=== PATIENT | female | born 1995 | race Caucasian/White ===

== ENCOUNTER 2018-07-17 19:16 | Inpatient (IN) | payer OTHER ==
[2018-07-17] MEDS ORDERED: TDAP ADULT 0.5 ML INJ (BOOSTRIX) IM ONE (19:21)
[2018-07-17] MEDS ORDERED: CEFAZOLIN 1 GM/DEXTROSE/50 ML BAG IV ONE (19:21)
[2018-07-17 19:32] LABS: PLATELET COUNT 317 10^3/uL (150-400)
[2018-07-17] MEDS ORDERED: NS 1,000 ML IV ONE (19:44)
[2018-07-17] MEDS ORDERED: ONDANSETRON 4 MG/2 ML VIAL IVP PRN ×2 (20:10→23:15)
[2018-07-17] MEDS ORDERED: ACETAMINOPHEN 325 MG TAB PO PRN (20:10)
[2018-07-17] MEDS ORDERED: HYDROCODONE/APAP 5/325 TAB PO PRN (20:10)
[2018-07-17] MEDS ORDERED: DIAZEPAM 5 MG TAB PO PRN (20:10)
[2018-07-17] MEDS ORDERED: ONDANSETRON 4 MG/2 ML VIAL IVP ONE (20:11)
[2018-07-17] MEDS ORDERED: HYDROmorphONE/DILAUDID 1 MG/ML INJ IVP ONE (20:11)
--- NOTE | 2018-07-17 20:19 | EDPHY ---
H & P Time Seen by Provider: 07/17/18 19:20 HPI/ROS: Chief complaint. Full trauma activation HPI. Patient is 23-year-old female here is full trauma activation per EM S. Patient was at the [employer] and was approximately 15-20 feet above the ground. She fell awkwardly onto a mat. Landing somewhat on her chest apparently. She sustained injury to her left elbow and right ankle. Has been unable to ambulate. Did not strike her head or lose consciousness. No neck or back pain. No chest discomfort or trouble breathing. No abdominal pain. No previous injuries to the elbow or ankle. ROS Constitutional. no fever/chills, no weakness Eyes. no problems with vision ENT. no sore throat, no nasal drainage Cardiovascular. no chest pain Respiratory. no shortness of breath, no cough Abdominal. no abdominal pain, no nausea/vomiting, no diarrhea . no problems urinating MS. Left elbow and right ankle pain Skin. no rash Lymph. no swollen glands Neuro. no headache, no dizziness, no difficulty walking or with speech Past Medical/Surgical History: Healthy Social History: Single, nonsmoker, no alcohol Smoking Status: Never smoked Physical Exam: General Appearance: Alert well-developed female moderate to severe distress. Vital signs stable Eyes: Pupils equal and round no pallor or injection. ENT, Mouth: Mucous membranes are moist. Respiratory: There are no retractions, lungs are clear to auscultation. Cardiovascular: Regular rate and rhythm. Gastrointestinal: Abdomen is soft and nontender, no masses, bowel sounds normal. Neurological: Awake and alert, sensory and motor exams grossly normal. Skin: Warm and dry, no rashes. Musculoskeletal: Neck is nontender. We log-rolled the patient and she has no T , L, S spine pain Extremities obvious dislocation of the left elbow with thready radial pulse. Open dislocation of the right ankle with foot severely angulated. Poor pulses to feet. The foot is still in the climbing shoe. I can see the bottom of the tibia and fibula articular surface and the top of the talar dome on the foot that is still in the shoe Psychiatric: Patient is oriented X 3, there is no agitation. Constitutional: Initial Vital Signs Temperature (C) 37.0 C 07/17/18 19:17 Heart Rate 113 H 07/17/18 19:17 Respiratory Rate 28 H 07/17/18 19:17 Blood Pressure 136/96 H 07/17/18 19:17 O2 Sat (%) 100 07/17/18 19:17 O2 Delivery Mode Room Air Allergies/Adverse Reactions: No Allergies [NKDA] Allergy (Verified 07/17/18 20:10) Home Medications: Medication Instructions Recorded Norethindrone-E.estradiol-Iron 1 each PO DAILY 07/17/18 [Blisovi Fe 1-20 Tablet] Medical Decision Making Procedures: IV normal saline. Dilaudid for pain. Zofran for nausea. Ancef IV. Tetanus shot Procedure: Conscious sedation. Indication: Dislocation reduction I want to perform procedural sedation to reduce the ankle and left elbow The patient is an appropriate candidate to tolerate procedural sedation. The patient's vital signs and mental status are appropriate. The risks, benefits and alternatives of the sedation were discussed with the patient. The patient is ASA classification 1-5. The patient's Mallampati airway score was 1 and the patient did meet the 3-3-2 airway measurements. A time out was completed. The patient was sedated with propofol 120 mg IV. The patient was monitored with continuous pulse oximetry, air sampling and monitoring and end tidal CO2. There were no complications and no significant hypoxemia. I performed I performed the reduction of the elbow and Dr. Jenkins performed reduction of the ankle The total time I spent at the bedside during the procedural sedation was minutes. The patient was examined after the procedural sedation and has returned to their pre -sedation baseline with normal vital signs and a normal examination. ED Course/Re-evaluation: Following reduction of the elbow the pulses in the radial artery were diminished. I used vascular ultrasound and started up high in the upper arm and trace the artery all the way down. There is no evidence of extravasation or impairment. Following this radial pulses are good. Following reduction of the ankle though the patient has good pulses in the feet and the foot becomes pink Patient is placed in a OC L splint on the right ankle. Post splint application inspected by me shows good anatomic position and distal motor vascular sensitivity to be intact. Ex further x-rays show nondisplaced fracture of the left distal radius. She is put in a Velcro splint as well as put in a sling and she will be going to the operating room for her ankle Fast exam shows no evidence of intra-abdominal bleeding Dr. Jenkins is present on arrival of the patient I consulted and discussed case with Dr. Jason for orthopedic who will see the patient and take her to the OR for stabilization washout. Differential Diagnosis: Obvious dislocation of elbow and disarticulation of the right ankle. I considered other trauma including head spine chest and abdominal trauma Critical Care Time: Critical care time exclusive procedures 45 min - Data Points Laboratory Results: Laboratory Results 07/17/18 19:20 07/17/18 19:20 07/17/18 07/17/18 07/17/18 19:26 19:20 19:20 WBC RBC Hgb POC Hgb 13.9 gm/dL gm/dL (12.6-16.3) Hct POC Hct 41 % % (38-47) MCV MCH MCHC RDW Plt Count MPV Neut % (Auto) Lymph % (Auto) [place] % (Auto) Eos % (Auto) Baso % (Auto) Nucleat RBC Rel Count Absolute Neuts (auto) Absolute Lymphs (auto) Absolute Monos (auto) Absolute Eos (auto) Absolute Basos (auto) Absolute Nucleated RBC Immature Gran % Immature Gran # POC Sodium 140 mEq/L mEq/L (135-145) Sodium POC Potassium 2.9 mEq/L L mEq/L (3.3-5.0) Potassium POC Chloride 104 mEq/L mEq/L (97-110) Chloride Carbon Dioxide Anion Gap POC BUN 14 mg/dL mg/dL (7-23) BUN Creatinine POC Creatinine 0.7 mg/dL mg/dL (0.6-1.0) Estimated GFR Glucose POC Glucose 101 mg/dL H mg/dL (70-100) Calcium Beta HCG, Qual Pending Patient ABO/Rh O POSITIVE Antibody Screen NEGATIVE 07/17/18 07/17/18 19:20 19:20 WBC 8.65 10^3/uL 10^3/uL (3.80-9.50) RBC 4.27 10^6/uL 10^6/uL (4.18-5.33) Hgb 13.6 g/dL g/dL (12.6-16.3) POC Hgb Hct 39.8 % % (38.0-47.0) POC Hct MCV 93.2 fL fL (81.5-99.8) MCH 31.9 pg pg (27.9-34.1) MCHC 34.2 g/dL g/dL (32.4-36.7) RDW 14.1 % % (11.5-15.2) Plt Count 317 10^3/uL 10^3/uL (150-400) MPV 10.0 fL fL (8.7-11.7) Neut % (Auto) 53.0 % % (39.3-74.2) Lymph % (Auto) 36.0 % % (15.0-45.0) [place] % (Auto) 8.3 % % (4.5-13.0) Eos % (Auto) 2.0 % % (0.6-7.6) Baso % (Auto) 0.5 % % (0.3-1.7) Nucleat RBC Rel Count 0.0 % % (0.0-0.2) Absolute Neuts (auto) 4.59 10^3/uL 10^3/uL (1.70-6.50) Absolute Lymphs (auto) 3.11 10^3/uL H 10^3/uL (1.00-3.00) Absolute Monos (auto) 0.72 10^3/uL 10^3/uL (0.30-0.80) Absolute Eos (auto) 0.17 10^3/uL 10^3/uL (0.03-0.40) Absolute Basos (auto) 0.04 10^3/uL 10^3/uL (0.02-0.10) Absolute Nucleated RBC 0.00 10^3/uL 10^3/uL (0-0.01) Immature Gran % 0.2 % % (0.0-1.1) Immature Gran # 0.02 10^3/uL 10^3/uL (0.00-0.10) POC Sodium Sodium 138 mEq/L mEq/L (135-145) POC Potassium Potassium 3.2 mEq/L L mEq/L (3.3-5.0) POC Chloride Chloride 104 mEq/L mEq/L (97-110) Carbon Dioxide 20 mEq/l L mEq/l (22-31) Anion Gap 14 mEq/L mEq/L (8-16) POC BUN BUN 16 mg/dL mg/dL (7-23) Creatinine 0.7 mg/dL mg/dL (0.6-1.0) POC Creatinine Estimated GFR > 60 Glucose 98 mg/dL mg/dL (70-100) POC Glucose Calcium 9.8 mg/dL mg/dL (8.5-10.4) Beta HCG, Qual Patient ABO/Rh Antibody Screen Medications Given: Cefazolin Sodium/Dextrose (Ancef 1 Gm (Premix)) 50 mls @ 200 mls/hr IV EDNOW ONE PRN Reason: Protocol Stop: 07/17/18 20:25 Last Admin: 07/17/18 19:23 Dose: 50 mls Discontinued Medications Hydromorphone HCl (Dilaudid) 1 mg IVP EDNOW ONE Stop: 07/17/18 20:12 Last Admin: 07/17/18 19:18 Dose: 1 mg Sodium Chloride (Ns) 1,000 mls @ 0 mls/hr IV ONCE ONE; Wide Open PRN Reason: Protocol Stop: 07/17/18 19:45 Last Admin: 07/17/18 19:17 Dose: 1,000 mls Ondansetron HCl (Zofran) 4 mg IVP EDNOW ONE Stop: 07/17/18 20:12 Last Admin: 07/17/18 19:20 Dose: 4 mg Point of Care Test Results: Chemistry 07/17/18 19:26 POC Sodium 140 mEq/L mEq/L (135-145) POC Potassium 2.9 mEq/L L mEq/L (3.3-5.0) POC Chloride 104 mEq/L mEq/L (97-110) POC BUN 14 mg/dL mg/dL (7-23) POC Creatinine 0.7 mg/dL mg/dL (0.6-1.0) POC Glucose 101 mg/dL H mg/dL (70-100) ISTAT H&H 07/17/18 19:26 POC Hgb 13.9 gm/dL gm/dL (12.6-16.3) POC Hct 41 % % (38-47) Departure - Departure Disposition: [facility] Inpatient Acute Clinical Impression: Multiple traumatic injuries Condition: Fair
[2018-07-17 20:23] LABS: INR 0.93 (0.83-1.16); PROTIME(PATIENT) 12.7 SEC (12.0-15.0)
[2018-07-17] MEDS ORDERED: PROPOFOL 200 MG/20 ML VIAL IVP ONE (20:29)
[2018-07-17] MEDS ORDERED: LR 1,000 ML IV SCH (20:30)
--- NOTE | 2018-07-17 20:33 | GHP ---
[f rep st] PREOP HISTORY AND PHYSICAL DATE OF ADMISSION: 07/17/2018 REASON FOR EVALUATION: Full trauma activation. 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 She lost her balance at the time of the top of her route and per her boyfriend's recollection, landed on her chest. She was complaining of severe left arm and right ankle pain. She was noted to have a severe deformities of both extremities and brought to [facility] for further assessment. On ED arrival, the patient was with the above complaints only. She was without complaints of headache, neck pain, chest pain, shortness of breath, or abdominal complaints. She denied loss of consciousness. PAST MEDICAL HISTORY: None. PAST SURGICAL HISTORY: Tonsillectomy. MEDICATIONS: Oral contraceptives. ALLERGIES: No known drug allergies. SOCIAL HISTORY: No alcohol or tobacco. She is a [employer] student. PHYSICAL EXAM: VITAL SIGNS: Blood pressure 136/96, pulse 113, respirations 28 , patient is 100% saturation room air. PRIMARY SURVEY: ABC intact. SECONDARY SURVEY: HEENT: Scalp atraumatic. Pupils are equally round and reactive to light and accommodation. Face is nontender. Cervical spine nontender. Trachea midline without crepitus. HEART: Regular without murmurs. LUNGS: Clear bilaterally. ABDOMEN: Soft, nontender, nondistended. No abdominal wall abrasions. CHEST WALL: Without step-offs or deformities. PELVIS: Nontender. EXTREMITIES: Right upper extremity unremarkable. 2+ radial pulse. Left upper extremity with obvious elbow dislocation. Radial pulses initially not palpable. Left lower extremity unremarkable. Right lower extremity with a complete open fracture dislocation with talar joint avulsion. BACK: Thoracic and lumbar spines nontender. PROCEDURES: FAST, 4 views, unremarkable with normal cardiac, bilateral upper quadrant, as well as pelvic windows. Propofol was administered and the left elbow was reduced by the emergency room physician recreational therapist, as was the right foot being relocated. Dorsalis pedis and posterior tibial pulses were immediately present upon completion of the ankle reduction. Left upper extremity ultrasound was completed showing an intact brachial artery from the level of the axilla down to the radial and ulnar arteries bilaterally. Palpable pulses were present once spasm released. Sensation and motor function grossly intact upon repeat assessment. IMPRESSION: Bouldering fall. Left elbow fracture dislocation and open dislocation/disarticulation of the right talar joint. Both extremities appear neurologically intact. PLAN: 1. Both upper and lower extremities have been adequately reduced. 2. Orthopedic surgery has been consulted for right ankle washout and stabilization. 3. Antibiotics and tetanus have been administered. 4. Tertiary survey to be completed once the patient stabilized from her immediate orthopedic injuries. 5. No other acute identifiable traumatic injuries noted at present time. Care plan findings were discussed with the patient's boyfriend at bedside and mother via phone. The patient's father has been contacted as well, who is en route. 6. C-spine has been clinically cleared. /[id number]/MODL MTDD
--- NOTE | 2018-07-17 21:04 | GHP ---
[f rep st] PREOP HISTORY AND PHYSICAL DATE OF ADMISSION: 07/17/2018 CHIEF COMPLAINT: 1. Left elbow pain. 2. Right ankle pain. DIAGNOSES: 1. Dislocation, right ankle with brief vascular compromise. 2. Simple elbow dislocation. 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 Bouldering up a spot. Fell about 15 to 20 feet. Landed wr dora onto her right ankle and left elbow. She was brought by EMS. Her foot and ankle were deformed. Elbow was deformed. She was triaged by the emergency room and had a successful elbow reduction and right ankle reduction. Had general surgery trauma evaluation and found to have isolated orthopedic i njuries with no vascular compromise. The ankle perked up with good palpable pulses, as well as the l eft upper extremity. Please see details of ER H and P, and General surgery H and P. PERTINENT ORTHOPEDIC EXAMINATION: A well-appearing female. She has had some pain medications. She is talkative and appropriate. Her dad and her boyfriend are at the bedside. She is in a well-placed sling on the left side. The left upper extremity and the right ankle, has pink toes, mobile toes wi th slightly decreased sensation in her superficial peroneal and deep peroneal. She has an intact EHL , FHL. Knee is not swollen. Abdomen is soft. Pelvis is nonpainful. The right upper extremity has no evidence of pain or trauma. Imaging reviewed. IMPRESSION/RECOMMENDATION: Elbow dislocation, reduced in the ER. Likely recommend early range of mo tion. Consider platform walker. With regard to the right ankle open dislocation, there were reports that it was a lateral wound. Plan for open washout, lateral ankle ligament reconstruction, wound cl osure. Possible, but unlikely ex-fix if the ankle is unstable. /[id number]/MODL
[2018-07-17] MEDS ORDERED: BACITRACIN 50,000 UNITS/10 ML SYR IRR ONE (21:44)
[2018-07-17] MEDS ORDERED: BUPIVACAINE 0.5% 30 ML SDV ONE (21:44)
[2018-07-17] MEDS ORDERED: POLYMYXIN B SULFATE 500,000 UNIT/10 ML SYR IRR ONE (21:44)
[2018-07-17] MEDS ORDERED: fentaNYL 100 MCG/2 ML INJ ONE ×3 (21:45→23:27)
[2018-07-17] MEDS ORDERED: PROPOFOL 200 MG/20 ML VIAL ONE (21:45)
[2018-07-17] MEDS ORDERED: oxyCODONE IR 5 MG TAB PO PRN (21:53)
[2018-07-17] MEDS ORDERED: D5W 1/2 NS W/ 20 KCl/L 1,000 ML IV SCH (22:00)
--- NOTE | 2018-07-17 22:03 | PDANEPAE ---
ANE History of Present Illness r ankle dislocation ANE Past Medical History - Pulmonary History Hx Oxygen in Use at Home: No - Endocrine History Hx Diabetes: No ANE Review of Systems Review of Systems: ANE Patient History - Allergies Allergies/Adverse Reactions: No Allergies [NKDA] Allergy (Verified 07/17/18 20:10) - Home Medications Home Medications: Norethindrone-E.estradiol-Iron [Blisovi Fe 1-20 Tablet] 1 each PO DAILY [Last Taken Unknown] - Smoking Hx Smoking Status: Never smoked ANE Labs/Vital Signs - Labs Result Diagrams: 07/17/18 19:20 07/17/18 19:20 - Vital Signs Blood Pressure: 136/96 Heart Rate: 113 Respiratory Rate: 28 O2 Sat (%): 100 Height: 160.02 cm Weight: 47.627 kg ANE Physical Exam - Airway Neck exam: FROM Mallampati Score: Class 1 Mouth exam: normal dental/mouth exam - Pulmonary Pulmonary: no respiratory distress - Cardiovascular Cardiovascular: regular rate and rhythym - ASA Status ASA Status: E ANE Anesthesia Plan Anesthesia Plan: general endotracheal anesthesia
[2018-07-17] MEDS ORDERED: BUPIVACAINE 0.25% 30 ML SDV ONE (22:34)
[2018-07-17] MEDS ORDERED: ROPIVACAINE HCL 20 MG/10 ML INJ EP ONE ×2 (22:43→22:45)
--- NOTE | 2018-07-17 22:53 | GOP ---
[f rep st] OPERATIVE REPORT DATE OF OPERATION: 07/17/2018 SURGEON: Darryl Koch MD ANESTHESIA: IV sedation administered by the emergency room staff. PREOPERATIVE DIAGNOSIS: 1. Right open ankle dislocation. 2. Left elbow dislocation. POSTOPERATIVE DIAGNOSIS: 1. Right open ankle dislocation. 2. Left elbow dislocation. PROCEDURE PERFORMED: 1. Irrigation, right lateral ankle, including skin, subcutaneous tissue, and bone. 2. Closed reduction, right ankle dislocation. 3. Closed reduction, left elbow dislocation. FINDINGS: INDICATIONS: The patient is a 23-year-old who presented as a trauma code to the emergency room after a fall while climbing. She had gross deformities of her right ankle and left elbow. Clinical and r adiographic evaluation showed dislocations (without fractures) of both of these. Based on the severe angulation at the joints and concern over vascular compromise, it was felt that emergent reductions be pursued rather than waiting for definitive operative management. DESCRIPTION OF PROCEDURE: After appropriate levels of sedation had been administered, the right ankl e was irrigated with manual lavage utilizing 2 L of normal saline irrigation. No gross debris in the wound. A closed reduction maneuver with distraction and eversion was performed, keeping the skin fr om buttonholing underneath the reduced fibula. The wound was covered with Betadine-soaked 4 x 4 and wrapped in Kerlix. A posterior below-knee splint was applied. Attention was then directed toward th e left elbow. With distraction and manipulation, the elbow was easily reduced. At this point, vascu lar evaluation was performed by the emergency room and trauma surgeon. Definitive operative manageme nt of the ankle by the on-call orthopedic surgeon, Dr. Quezada, would be undertaken. COMPLICATIONS: None. /[id number]/MODL
[2018-07-17] MEDS ORDERED: ceFAZolin 1 GM VIAL ONE (23:02)
[2018-07-17] MEDS ORDERED: DEXAMETHASONE 4 MG/ML VIAL ONE (23:02)
[2018-07-17] MEDS ORDERED: ROCURONIUM 50 MG/5 ML VIAL ONE (23:02)
[2018-07-17] MEDS ORDERED: ONDANSETRON 4 MG/2 ML VIAL ONE (23:02)
[2018-07-17] MEDS ORDERED: SUGAMMADEX SODIUM 200 MG/2 ML VIAL IVP ONE (23:08)
[2018-07-17] MEDS ORDERED: PROMETHAZINE HCL 25 MG/ML INJ IVP PRN (23:15)
[2018-07-17] MEDS ORDERED: NALOXONE HCL 0.4 MG/ML INJ IVP PRN (23:15)
[2018-07-17] MEDS ORDERED: MEPERIDINE 25 MG/0.5 ML AMP IVP PRN (23:15)
[2018-07-17] MEDS ORDERED: HYDROmorphONE/DILAUDID 1 MG/ML INJ IVP PRN (23:15)
--- NOTE | 2018-07-17 23:16 | POSTANESTH ---
Post Anesthetic Evaluation Cardiovascular Status: Normal, Stable Respiratory Status: Normal, Stable Level of Consciousness/Mental Status: Can Participate in Eval Pain Control: Adequate, Prn Tx Ordered Nausea/Vomiting Control: Adequate, Prn Tx Ordered Complications Possibly Related to Anesthesia: None Noted
[2018-07-17] MEDS: fentaNYL 100 MCG/2 ML INJ IVP PRN ×2 (23:29→23:34)
[2018-07-17] MEDS ORDERED: oxyCODONE IR 5 MG TAB ONE (23:42)
--- NOTE | 2018-07-17 23:48 | GOP ---
[f rep st] OPERATIVE REPORT DATE OF OPERATION: 07/17/2018 SURGEON: Rogerio Jason MD PREOPERATIVE DIAGNOSIS: Right open ankle dislocation. POSTOPERATIVE DIAGNOSIS: Right open ankle dislocation. PROCEDURE PERFORMED: 1. Irrigation, debridement of open ankle dislocation. 2. Repair of lateral ligament structures and stabilization. FINDINGS: ESTIMATED BLOOD LOSS: Minimal. INDICATIONS: 23-year-old female who fell bouldering. She sustained an open ankle dislocation along with a left elbow dislocation. The emergency room reduced both of these. She presents to me for ope rative stabilization, irrigation, debridement of open ankle injury. Patient identified in the preoperative holding area in the emergency room. Family was at the bedside . The ankle was well reduced already as well as the elbow. DESCRIPTION OF PROCEDURE: Patient was brought into the operating room. General anesthesia. No tour niquet was used. No Esmarch was used. The right lower extremity was prepped and draped in usual velma rile fashion. Surgical time-out was performed. She had a 6 cm transverse incision about 2 cm from t he distal fibular tip. She was unstable to inversion and was easily able to dislocate. We copiously washed out the right lower extremity. We took a slightly vertical incision from the anterior aspect to open up a flap of tissue to access the lateral ligament capsule, ATFL, and CFL. The peroneals we re visible. They were not dislocating. We washed out with 6000 of normal saline. The last 3000 wit h polymyxin and bacitracin. We closed the capsule with [id number] 0 PDS x5 stitches. Irrigated again and closed the subcutaneous tissue with 3-0 Monocryl and skin with 3-0 nylon, all monofilament sutures. We tested the ankle. It had neutral dorsiflexion and full knee extension and about 5 degr ees of inversion with no evidence of dislocation or instability. We did 27 cc of 0.2% ropivacaine in a field block around the ankle. We placed Xeroform, 4x4s, ABD, Webril, and a well-padded AO splint in 90 degrees of dorsiflexion or neutral dorsiflexion. COMPLICATIONS: None. TOURNIQUET: 0. DISPOSITION: Extubated awake to the PACU in stable condition. /[id number]/MODL
[2018-07-18] MEDS: HYDROmorphONE/DILAUDID 1 MG/ML INJ IVP PRN ×5 (00:14→12:57)
[2018-07-18] MEDS ORDERED: KETOROLAC 15 MG/1 ML SDV IVP PRN (02:38)
[2018-07-18] MEDS ORDERED: KETOROLAC 30 MG/1 ML SDV IVP ONE (02:45)
[2018-07-18] MEDS: oxyCODONE IR 5 MG TAB PO PRN ×2 (05:20→11:32)
--- NOTE | 2018-07-18 07:12 | PDMN ---
Medical Necessity [place] [facility] [place], closed or open reduction - INPT for Open dislocation-: I/D R lateral ankle, closed reduction R ankle, Closed reduction L elbow dislocation,
[2018-07-18] MEDS: ENOXAPARIN 40 MG/0.4 ML SYR SC SCH (08:49)
--- NOTE | 2018-07-18 12:47 | SOAPPROG ---
SOAP Progress Note Assessment/Plan: Assessment/Plan: 23 yo female s/p 15 foot fall, pod#1 s/p right ankle relocation and wash out x2 with lateral ankle ligament repair and capsular closure by dr. palafox and dr. manrique respectively. pain control: tylenol 1000mg q8h prn pain, toradol IV prn pain oxycodone 5-10mg po q4-6h prn pain cyclobenzaprine 10mg 1 tab po q8h scheduled spasm/pain RLE: non-weight bearing right lower extremity except may do pivet transfers once trained by PT, maintain splint LUE: range of motion of elbow as tolerated by pain, full shoulder/wrist/digit as tolerated by pain, non-weight bearing, may use platform walker -plan for discharge once tolerating PO pain meds -f/u with orthopedics 7-10 days after surgery with dr. manrique or staff in clinic Subjective: paty reports that she is doing okay, her pain was better controlled before she got up to go to the bathroom, it is now 8/, even when it was "better controlled," it was still very painful, she reports spasming causing lots of pain as well in the leg and arm. denies any chest pain, sob, difficulty breathing, denies n/v/d/c. reports the numbness in her right foot is improving, she can also wiggle her toes more but it is painful. Objective: healthy appearing young female, in pain RLE: dressings c/d/i, no drainage or visible blood, no ankle rom assessed, grossly nvid with brisk cap refill, digital rom limited by pain Vital Signs Temp Pulse Resp BP Pulse Ox 36.7 C 80 15 121/74 H 100 07/18/18 11:20 07/18/18 11:20 07/18/18 11:20 07/18/18 11:20 07/18/18 11:20 07/17/18 07/18/18 07/19/18 05:59 05:59 05:59 Intake Total 3300 500 Output Total 920 Balance 2380 500 PT 12.7 SEC (12.0-15.0) 07/17/18 20:12 INR 0.93 (0.83-1.16) 07/17/18 20:12 ICD10 Worksheet Patient Problems: Problems Problem Status Onset Multiple traumatic injuries Acute
[2018-07-18] MEDS ORDERED: CYCLOBENZAPRINE 10 MG TAB PO PRN (12:51)
[2018-07-18] MEDS ORDERED: ACETAMINOPHEN 500 MG TAB PO PRN (12:56)
[2018-07-18] MEDS ORDERED: DIAZEPAM 5 MG TAB PO PRN ×2 (13:11→13:30)
[2018-07-18] MEDS ORDERED: IBUPROFEN 800 MG TAB PO SCH (14:00)
--- NOTE | 2018-07-18 14:34 | ASMTCMCOM ---
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 Pt has ortho injuries on R ankle, L elbow. OT/PT/[employer]IST evals pending. Chart indicates pt father and boyfriend have been at hospital. Inpatient rehab consult order in. CM to follow D/c plan of care: TBD Date Signed: 07/18/2018 02:33 PM Electronically Signed By:BIANCA Krishnan
[2018-07-18] MEDS: CYCLOBENZAPRINE 10 MG TAB PO PRN (16:03)
[2018-07-18] MEDS: ACETAMINOPHEN 500 MG TAB PO SCH ×2 (16:03→21:34)
[2018-07-18] MEDS: NORETHINDRONE E ESTRADIOL IRON PO SCH (16:09)
--- NOTE | 2018-07-18 16:35 | TRAUMAPNT ---
Trauma Tertiary Progress Note New Findings: no new findings Assessment/Plan: 07/18/2018 PAD#1 issues: left elbow dislocation right ankle disruption Assessment: Pain control inadequate. No stool yet Plan: medications adjusted. Will add bowel protocol Subjective: My ankle hurts! Objective: Vital Signs Temp Pulse Resp BP Pulse Ox 36.9 C 96 15 101/69 97 07/18/18 15:48 07/18/18 15:48 07/18/18 15:48 07/18/18 15:48 07/18/18 15:48 07/17/18 07/18/18 07/19/18 05:59 05:59 05:59 Intake Total 3300 500 Output Total 920 Balance 2380 500 PT 12.7 SEC (12.0-15.0) 07/17/18 20:12 INR 0.93 (0.83-1.16) 07/17/18 20:12 Physical Exam - Physical Exam General Appearance: WD/WN, alert, mild distress Neck: non-tender, full range of motion Respiratory: chest non-tender, lungs clear, normal breath sounds Cardiac/Chest: regular rate, rhythm Abdomen: normal bowel sounds, non-tender, soft Pelvic Exam: deferred Rectal: deferred Back: Normal inspection Skin: normal color, warm/dry Extremities: other (right ankle splinted) Neuro/Psych: no motor/sensory deficits, alert, normal mood/affect, oriented x 3 Time Spent w/Patient (minutes): 25
[2018-07-18] MEDS ORDERED: MAGNESIUM HYDROXIDE 30 ML UDCUP PO PRN (17:13)
[2018-07-18] MEDS ORDERED: POLYETHYLENE GLYCOL 3350 17 GM PKT PO PRN (17:13)
[2018-07-18] MEDS ORDERED: LACTULOSE 20 GM/30 ML UDCUP PO PRN (17:13)
[2018-07-18] MEDS ORDERED: BISACODYL 10 MG SUPP PR PRN (17:13)
[2018-07-18] MEDS: KETOROLAC 30 MG/1 ML SDV IVP SCH ×2 (18:13→23:33)
[2018-07-18] MEDS: POTASSIUM CL 20 MEQ TAB PO SCH (21:33)
[2018-07-18] MEDS: SENNOSIDES/DOCUSATE SODIUM TAB PO SCH (21:34)
[2018-07-19] MEDS: CYCLOBENZAPRINE 10 MG TAB PO PRN ×2 (02:23→17:34)
[2018-07-19] MEDS: oxyCODONE IR 5 MG TAB PO PRN ×2 (02:23→05:25)
[2018-07-19] MEDS: HYDROmorphONE/DILAUDID 1 MG/ML INJ IVP PRN (03:25)
[2018-07-19] MEDS: KETOROLAC 30 MG/1 ML SDV IVP SCH ×2 (05:26→12:33)
[2018-07-19] MEDS: ACETAMINOPHEN 500 MG TAB PO SCH ×2 (06:02→16:05)
[2018-07-19] MEDS: POTASSIUM CL 20 MEQ TAB PO SCH ×2 (06:03→16:06)
--- NOTE | 2018-07-19 09:52 | TRAUMAPN ---
Trauma Progress Note Assessment/Plan: 07/18/2018 PAD#1 issues: left elbow dislocation right ankle disruption Assessment: Pain control inadequate. No stool yet Plan: medications adjusted. Will add bowel protocol PAD#2 Assessment: Pain control better with Toradol but still has occasional breakthrough. Plan: almost set for discharge. Subjective: Decreased sensation on dorsum of right 4th toe No stool yet Objective: Vital Signs Temp Pulse Resp BP Pulse Ox 36.7 C 83 14 97/58 L 96 07/19/18 07:30 07/19/18 07:30 07/19/18 07:30 07/19/18 07:30 07/19/18 07:30 Laboratory Results 07/19/18 04:45 07/18/18 07/19/18 07/20/18 05:59 05:59 05:59 Intake Total 3300 1484 Output Total 920 1400 900 Balance 2380 84 -900 PT 12.7 SEC (12.0-15.0) 07/17/18 20:12 INR 0.93 (0.83-1.16) 07/17/18 20:12 Physical Exam - Physical Exam General Appearance: WD/WN, alert, no apparent distress Neck: non-tender, full range of motion Respiratory: chest non-tender, lungs clear, normal breath sounds Cardiac/Chest: regular rate, rhythm Abdomen: non-tender, soft Pelvic Exam: deferred Rectal: deferred Back: Normal inspection Skin: normal color, warm/dry Extremities: other (decreased sensation on dorsum of right 4th toe) Neuro/Psych: no motor/sensory deficits, alert, normal mood/affect Time Spent w/Patient (minutes): 15
[2018-07-19] MEDS: NORETHINDRONE E ESTRADIOL IRON PO SCH (10:20)
[2018-07-19] MEDS: SENNOSIDES/DOCUSATE SODIUM TAB PO SCH (10:53)
[2018-07-19] MEDS: ENOXAPARIN 40 MG/0.4 ML SYR SC SCH (10:53)
--- NOTE | 2018-07-19 11:20 | SOAPPROG ---
SOAP Progress Note Assessment/Plan: Assessment/Plan: 23 yo female s/p 15 foot fall, pod#1 s/p right ankle relocation and wash out x2 with lateral ankle ligament repair and capsular closure by dr. palafox and dr. manrique respectively. proph: per primary pain control: tylenol 1000mg q8h prn pain, toradol IV prn pain oxycodone 5-10mg po q4-6h prn pain cyclobenzaprine 10mg 1 tab po q8h scheduled spasm/pain PT/OT RLE: non-weight bearing right lower extremity except may do pivet transfers once trained by PT, maintain splint LUE: range of motion of elbow as tolerated by pain, full shoulder/wrist/digit as tolerated by pain, non-weight bearing, may use platform walker -plan for discharge once tolerating PO pain meds -f/u with orthopedics 7-10 days after surgery with dr. manrique or staff in clinic 07/19/18 11:18 Subjective: paty reports that last night she didn't have any issues, pain was better controlled, but she is still using the IV toradol and still had "multiple rough episodes," but denies any falls or injuries, denies any fevers or chills, denies n/v/d/c. reports her sensation in her toes and right foot is still getting better, it feels less, but improved from yesterday. Objective: RLE: dressings c/d/i, no ankle rom assessed, grossly nvid increased sensation of "pressure" in right 4th toe, all 5 digits w/ brisk cap refill, digital rom limited by pain Vital Signs Temp Pulse Resp BP Pulse Ox 36.7 C 83 14 97/58 L 96 07/19/18 07:30 07/19/18 07:30 07/19/18 07:30 07/19/18 07:30 07/19/18 07:30 Laboratory Results 07/19/18 04:45 07/18/18 07/19/18 07/20/18 05:59 05:59 05:59 Intake Total 3300 1484 Output Total 920 1400 900 Balance 2380 84 -900 PT 12.7 SEC (12.0-15.0) 07/17/18 20:12 INR 0.93 (0.83-1.16) 07/17/18 20:12 - Time Spent With Patient Time Spent With Patient: 45 mins - Pending Discharge Pending Discharge Within 48 Hours: Yes Pending Discharge Date: 07/21/18 Pending Discharge Time: 11:00 ICD10 Worksheet Patient Problems: Problems Problem Status Onset Multiple traumatic injuries Acute
[2018-07-19 11:39] VITALS: BP 118/81
[2018-07-19] MEDS ORDERED: HYDROmorphONE/DILAUDID 2 MG TAB PO PRN (13:57)
--- NOTE | 2018-07-19 14:58 | SOAPPROG ---
SOAP Progress Note Assessment/Plan: Assessment: POD 2. R ankle washout and lateral lig repair. Vascular intact. Plan: 07/19/18 14:56 forearm weightbearing OK ELbow ROM OK R ankle toe touch weight bearing fu in my clinic in 7 days. Dispo. she has 2 flights of stairs to negotiate. Subjective: POD 2. Mom at bedside. Alert cooperative Objective: Vital Signs Temp Pulse Resp BP Pulse Ox 36.7 C 74 16 118/81 H 99 07/19/18 11:38 07/19/18 11:38 07/19/18 11:38 07/19/18 11:38 07/19/18 11:38 Laboratory Results 07/19/18 04:45 07/18/18 07/19/18 07/20/18 05:59 05:59 05:59 Intake Total 3300 1484 Output Total 920 1400 900 Balance 2380 84 -900 PT 12.7 SEC (12.0-15.0) 07/17/18 20:12 INR 0.93 (0.83-1.16) 07/17/18 20:12 mobile painful toe mvmt. 2 +DP pulses. R foot. splint CDI able to straight leg raise and move knee well L elbow with 10-110 flexion. swollen and bruised medially. ICD10 Worksheet Patient Problems: Problems Problem Status Onset Multiple traumatic injuries Acute
--- NOTE | 2018-07-19 16:02 | GDS ---
[f rep st] DISCHARGE SUMMARY DISCHARGE DIAGNOSIS: Fall from bouldering wall (approximately 15 feet) with dislocation, left elbow, and ligamentous disruption of right ankle with open wound. CONDITION ON DISCHARGE: Improved. DISPOSITION: Local residential hotel and then back to college. DIET: Unrestricted, although I have recommended she avoid constipating foods such as bananas, rice, applesauce, and cheese. There is no restriction on the texture of her diet. HOME MEDICATIONS: Include Tylenol 1000 mg every 8 hours. Flexeril 10 mg every 8 hours as needed. T oradol 10 mg every 6 hours for 4 days and when that is complete to continue on with Motrin 200 mg lesli ry 6 hours. She will take Dilaudid 2 mg to 4 mg every 4 hours as needed for severe pain. She will t tessy MiraLAX as needed for constipation. She will continue her [place] Fe 1/20 one tablet daily. She is to take a multivitamin with 100% of the GENERAL MAGISTRATE of zinc, copper, and C daily for 6 weeks. ACTIVITY: Right lower extremity touchdown weightbearing for pivot transfers only. Otherwise, nonwei ghtbearing. Left upper extremity, nonweightbearing, but may do range of motion of shoulder, elbow, w rist, and digits as tolerated by pain. She has a platform walker when bearing weight. FOLLOWUP: She will follow up with her orthopedist, Dr. Rogerio Jason MD, and will schedule an appoi ntment for 7-10 days after dismissal. She will follow up with Dr. Jaime Jenkins as needed. HOSPITAL COURSE: The patient was admitted and the ankle reduced in the ER. She was neurovascularly intact. The ligamentous disruption was repaired. Pain control has been an issue, but Toradol has wo rked well for her. She is set for discharge at this point. /[id number]/MODL
--- NOTE | 2018-07-19 18:12 | ASMTCMCOM ---
CM Note CM Note Notes: Spoke with Myriam at [facility], unable to accept as patient does not qualify for that level of care - recommends home. Met with patient and parents re: d/c plan of care. Plan is for patient to d/c with family to hotel temporarily before returning to her third level apartment. Family has purchased most needed DME, CM provided contact info for [facility] to obtain shower chair. CM # provided should they have any issues obtaining shower chair or any other questins post dsicharge. No other needs identified at this time. D/W RN. Plan: Home with family Date Signed: 07/19/2018 06:11 PM Electronically Signed By:Anne Marie Lundberg RN
--- NOTE | 2018-07-19 18:12 | ASMTLACE ---
[facility] Length of stay for Answers: 2 days current admission Acuity / Level of Answers: Yes Care: Did the patient have an inpatient admission? # of Emergency department Answers: 1-2 visits in the last 6 months Score: 6 Date Signed: 07/19/2018 06:11 PM Electronically Signed By:Anne Marie Lundberg RN
== END 2018-07-19 18:12 | disposition home or self-care (01) | DRG 494 ==
LOC: EDUNIT# → F3N 23:54
PROVIDERS: ADMIT Surgery; ATTEND Surgery
PROC: 0RSMXZZ Reposition Left Elbow Joint, External Approach (ICD-10-PCS; 2018-07-17)
PROC: 3E1U38Z Irrigation of Joints using Irrigating Substance, Percutaneous Approach (ICD-10-PCS; principal; 2018-07-17 20:00)
PROC: 0SSF0ZZ Reposition Right Ankle Joint, Open Approach (ICD-10-PCS; principal; 2018-07-17 20:00)
DX: S93.04XA Dislocation of right ankle joint, initial encounter (principal); S53.105A Unspecified dislocation of left ulnohumeral joint, initial encounter; W17.89XA Other fall from one level to another, initial encounter; Y92.39 Other specified sports and athletic area as the place of occurrence of the external cause; Y93.31 Activity, mountain climbing, rock climbing and wall climbing; Z23 Encounter for immunization
CPT/HCPCS: 82435-PO; 82565-PO; 82947-PO; 84132-PO; 84295-PO; 84520-PO; 85014-PO; 96374; 97110-GP; 97116-GP; 97162-GP; 97165-GO; 97535-GO; A4565; J0690; J1100; J1170; J1650; J1885; J2405; J2704; J2795; J3010; L3807